=== PATIENT | male | born 1990 | race Caucasian/White ===

== ENCOUNTER 2021-10-05 12:10 | Emergency (ER) | payer BC, SELFPAY ==
[~2021-10-05] VITALS: Ht 182.9 cm; Wt 97.5 kg
[2021-10-05 12:46] VITALS: BP 160/96
--- NOTE | 2021-10-05 14:24 | NUR ---
Patient ambulated with steady gait to bed 3.
--- NOTE | 2021-10-05 15:04 | NUR ---
31 YEARS OLD MALE WALKING TO ER C/O COUGH WITH CHEST PAIN FOR 1 WEEK, DENIES NAUSEA, VOMITING. 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
[2021-10-05 15:49] LABS: BASOPHILS % (AUTO) 0.1 % (0.0-2.0); EOSINOPHILS # (AUTO) 0.1 K/uL (0-0.4); EOSINOPHILS % (AUTO) 0.8 % (0.0-4.0); HEMATOCRIT 41.3 % (36-52); HEMOGLOBIN 14.3 g/dL (12.0-18.0); LYMPHOCYTES % (AUTO) 20.7 % (20.5-51.1); MEAN CORPUSCULAR HEMOGLOBIN 31 pg (27-31); MEAN CORPUSCULAR HGB CONC 35 g/dL (33-37); MEAN CORPUSCULAR VOLUME 88.6 fL (80-94); MONOCYTES # (AUTO) 0.6 K/uL (0.8-1.0); MONOCYTES % (AUTO) 6.1 % (1.7-9.3); NEUTROPHILS # (AUTO) 7.1 K/uL (1.8-7.7); NEUTROPHILS % (AUTO) 72.3 % (42.2-75.2); PLATELET COUNT (AUTO) 269 K/uL (140-450); RED BLOOD CELL COUNT(AUTO) 4.66 MIL/uL (4.20-6.10); WHITE BLOOD COUNT (AUTO) 9.8 K/uL (4.8-10.8)
[2021-10-05 16:29] LABS: ALBUMIN 3.7 g/dL (3.4-5.0); ANION GAP 15.9 (8-16); CARBON DIOXIDE 25.9 mmol/L (21-32); CREATININE 1.1 mg/dL (0.6-1.3); POTASSIUM 4.8 mmol/L (3.5-5.1); TOTAL BILIRUBIN 0.3 mg/dL (0.0-1.0)
[2021-10-05] MEDS ORDERED: ALBU-118 INH (16:40)
[2021-10-05 16:47] VITALS: BP 127/82
--- NOTE | 2021-10-05 16:48 | NUR ---
PATIENT CONDITION STABLE D/C HOME WITH INSTRUCTIONS AFTER CARE REVIEWED UNDERSTOOD,LEFT ER AMBULATORY WITH STEADY GAIT, NO SOB NO COUGH NO CHEST PAIN.
== END 2021-10-05 16:48 | disposition home or self-care (01) ==
LOC: MED 12:10
DX: J40 Bronchitis, not specified as acute or chronic (principal); Z79.899 Other long term (current) drug therapy
CPT/HCPCS: 71045; 80053; 85025; 93005; 99285